=== PATIENT | female | born 1945 | race Caucasian/White ===

== ENCOUNTER 2020-06-23 04:20 | Day surgery (SDC) | payer OTHER, MEDICARE ==
[2020-06-20 16:24] VITALS: BMI 26.6
--- NOTE | 2020-06-23 07:43 | OP ---
Operative Note - Note: Operative Date: 06/23/20 Pre-Operative Diagnosis: Left patella fracture Operation: Left patella ORIF Post-Operative Diagnosis: Same as Pre-op Surgeon: Spike Gage Platform Man: Nicki Feliz Anesthesia: General Operative Report Dictated: Yes
[2020-06-23] MEDS ORDERED: DEXAMETHASONE SOD PHOSPHATE/PF 10 MG/ML SDV ONE (09:18)
[2020-06-23] MEDS ORDERED: MIDAZOLAM HCL 2 MG/2 ML SINGLE DOSE VIAL ONE ×2 (09:19)
[2020-06-23] MEDS ORDERED: TRANEXAMIC ACID 1000 MG/10 ML VIAL ONE (10:49)
[2020-06-23] MEDS ORDERED: oxyCODONE HCL 5 MG TABLET PO PRN (10:52)
[2020-06-23] MEDS ORDERED: ONDANSETRON 4 MG/2 ML VIAL IVPUSH PRN (10:52)
[2020-06-23] MEDS ORDERED: DEXAMETHASONE SOD PHOSPHATE 4 MG/1 ML VIAL ONE (10:58)
[2020-06-23] MEDS ORDERED: PROPOFOL 20 ML ONE (10:58)
[2020-06-23] MEDS ORDERED: SEVOFLURANE 250 ML BTL ONE (10:59)
[2020-06-23] MEDS ORDERED: LACTATED RINGERS SOLUTION 1,000 ML IV SCH (11:00)
[2020-06-23] MEDS ORDERED: ONDANSETRON 4 MG/2 ML VIAL ONE (12:38)
--- NOTE | 2020-06-23 12:44 | OP ---
DATE OF OPERATION: 06/23/2020 PREOPERATIVE DIAGNOSIS: Left patella fracture. POSTOPERATIVE DIAGNOSIS: Left patella fracture. PROCEDURE: Left patella open reduction, internal fixation. SURGEON: Spike Gage MD MECHANICAL PROJECT MANAGER: TU Goss, whose skillful assistance was necessary for the safe and timely performance of this procedure. Ms. Feliz was able to provide limb positioning, traction, assist in fracture reduction as well as the insertion of orthopedic fixation hardware. ANESTHESIA: Regional plus general. POSTOPERATIVE CONDITION: Stable. COMPLICATIONS: None. IMPLANTS: Arthrex 4.5-mm cannulated screws x2. INDICATIONS: This is a pleasant woman who suffered a trip and fall. She was found to have a displaced patella fracture. Treatment options were discussed, including nonoperative, operative management. Operative risks were reviewed in detail including bleeding, infection, neurovascular injury, need for further surgery, postoperative pain and stiffness, nonunion, malunion, hardware failure or cutout. We discussed medical risks such as heart attack, stroke, DVT, PE, and . I reviewed postoperative rehabilitation protocol. I addressed all the patient's questions and concerns. She voiced understanding and elected to proceed. DESCRIPTION OF PROCEDURE: The patient was brought to the operating room where general anesthesia was administered. She was previously given nerve block in the preoperative holding area. Her left lower extremity was then prepped and draped in the usual sterile fashion. A preoperative dose of antibiotics was given, and the usual timeout procedure was performed. Incision was now planned in the midline over the patella. This was then carried down through skin to subcutaneous tissue. Electrocautery was used to maintain hemostasis. Sharp dissection was then carried down to the level of the periosteum. Periosteum was already split transversely at the site of the fracture. It was elevated back from the fracture edges. Fracture edges were now debrided of any soft callus or other debris. The wound was irrigated. Fracture reduction forceps were now applied across the patella in the vertical orientation. A joystick 0.020 K-wire was placed in the proximal fragment. Fracture was now reduced under fluoroscopic guidance to a satisfactory reduction. Two K-wires were now inserted from the cannulated screw set in the proximal to distal direction. These were placed parallel to the joint surface in the proximal to distal direction. Both K-wire placements were satisfactory. These were then measured. They were then overdrilled in the near cortex. Two 38-mm, 4.5-mm cannulated screws were then inserted, securing the fracture in place. To provide additional compression, a FiberTape was now placed in the [id number] fashion. It was then tied down, securing the construct with a tension band-type construct. At this point, the entire construct was examined visually and fluoroscopically. Both fracture reduction and hardware placement were satisfactory. The wound was copiously irrigated again. The periosteum was closed using 0 Vicryl. Subcutaneous tissue was approximated using 2-0 Vicryl. The skin was closed using 3-0 nylon. Sterile dressings were placed. Patient was extubated and transferred to recovery room in stable condition. Farshad [id number]
[2020-06-23] MEDS ORDERED: KETOROLAC TROMETHAMINE 30 MG/1 ML VIAL ONE (13:07)
[2020-06-23] MEDS ORDERED: KETOROLAC TROMETHAMINE 30 MG/1 ML VIAL IVPUSH ONE (13:51)
[2020-06-23 14:07] VITALS: PULSE 79
[2020-06-23 15:01] VITALS: BP 135/79; TEMP 98
== END 2020-06-23 15:00 | disposition home or self-care (01) ==
LOC: JASU-SURG 04:20
PROVIDERS: ATTEND Orthopaedic Surgery Sports Medicine
PROC: 0QSF04Z Reposition Left Patella with Internal Fixation Device, Open Approach (ICD-10-PCS; principal; 2020-06-23 10:45)
DX: S82.092A Other fracture of left patella, initial encounter for closed fracture (principal); X58.XXXA Exposure to other specified factors, initial encounter; Y93.9 Activity, unspecified; Y92.9 Unspecified place or not applicable
CPT/HCPCS: 76000-TC-FY; 94760